=== PATIENT | male | born 1975 | race Caucasian/White ===

== ENCOUNTER 2019-10-25 10:18 | Emergency (ER) | payer OTHER ==
[~2019-10-25] VITALS: Ht 180.3 cm; Wt 90.7 kg
[2019-10-25] MEDS ORDERED: BP MEDICATION (10:31)
[2019-10-25] MEDS ORDERED: LIRA0.6P (10:31)
[2019-10-25] MEDS ORDERED: Vitamin D2000 UNIT (10:31)
[2019-10-25] MEDS ORDERED: ERYT1OIN LEFTEYE (10:49)
== END 2019-10-25 10:54 | disposition home or self-care (01) ==
LOC: ER 10:18
DX: H01.001 Unspecified blepharitis right upper eyelid (principal); B20 Human immunodeficiency virus [HIV] disease
CPT/HCPCS: 99282